=== PATIENT | female | born 1985 ===

== ENCOUNTER 2016-11-25 11:17 | Day surgery (SDC) | payer MEDICAID ==
[2016-11-25] MEDS ORDERED: LR 1,000 ML IV ONE (12:05)
[2016-11-25] MEDS ORDERED: SURGIFLO MATRIX KIT WITH THROMBIN TP ONE (12:09)
[2016-11-25] MEDS ORDERED: METHYLENE BLUE 0.5% 50 MG/10 ML AMP ONE (12:10)
[2016-11-25] MEDS ORDERED: SILVER NITRATE APPLICATOR 1 APPL TP ONE (12:10)
[2016-11-25] MEDS ORDERED: BUPIVACAINE 0.25% 30 ML SDV ONE (12:10)
[2016-11-25] MEDS ORDERED: fentaNYL 100 MCG/2 ML INJ ONE ×2 (12:28→13:55)
[2016-11-25] MEDS ORDERED: MIDAZOLAM 2 MG/2 ML VIAL ONE (12:29)
[2016-11-25] MEDS ORDERED: PROPOFOL 200 MG/20 ML VIAL ONE (12:29)
[2016-11-25] MEDS ORDERED: ROCURONIUM 50 MG/5 ML VIAL ONE (12:29)
[2016-11-25] MEDS ORDERED: PROPOFOL/EMULSION 500 MG/50 ML BOTTLE IV ONE (12:44)
[2016-11-25] MEDS ORDERED: SUGAMMADEX SODIUM 200 MG/2 ML VIAL IVP ONE (13:01)
[2016-11-25] MEDS ORDERED: KETOROLAC 30 MG/1 ML SDV ONE (13:24)
--- NOTE | 2016-11-25 14:11 | GOP ---
[f rep st] OPERATIVE REPORT DATE OF OPERATION: 11/25/2016 SURGEON: Lizbeth Ramos MD HEALTH ADVISOR: Gardenia Nathan MD ANESTHESIOLOGIST: Jose G Simons MD ANESTHESIA: General with ET tube. PREOPERATIVE DIAGNOSIS: Desires female sterilization. POSTOPERATIVE DIAGNOSIS: Desires female sterilization. PROCEDURE PERFORMED: Laparoscopic bilateral salpingectomy. FINDINGS: Normal intraabdominal cavity, no adhesions. Normal bilateral tubes and ovaries. Normal uterus. Both fallopian tubes completely removed. Hemostasis noted at the end of procedure. SPECIMENS: Bilateral fallopian tubes. ESTIMATED BLOOD LOSS: Minimal. INDICATIONS: Patient is a 31-year-old, 3, para 3-0-0-3, who desires female sterilization. She is certain she does not want more children. She has tried other control options and feels they are not acceptable to her. We reviewed the risks and benefits, including the risk of regret, and she desires to proceed with permanent female sterilization with bilateral salpingectomy. DESCRIPTION OF PROCEDURE: The patient was brought to the operating room and a time-out was performed, with all parties in agreement of the patient and procedure. General anesthesia, with the ET tube, was obtained without complication. She was prepped and draped in the normal sterile fashion in dorsal lithotomy with Pedro stirrups and arms tucked, and a Caro catheter. Final time-out was performed. An acorn uterine manipulator was placed. 5 mL of 0.25% Marcaine was injected into the umbilicus. A 5 mm incision was made. The skin was tented up and the Veress needle was inserted. An opening pressure of 2 mmHg was noted, and the abdomen was insufflated to 15 mmHg. The 5 mm umbilical port was then placed under direct visualization. After injection of 5 mL of 0.25% Marcaine, bilateral 5 mm lower abdominal ports were also placed under direct visualization. The patient was placed in Trendelenburg. The findings were as noted above. The left tube was grasped at the fimbria, and using the PK gyrus underlying mesosalpinx was serially clamped, sealed and cut to the level of the cornua, where the tube was then cross-clamped and sealed and transected. The tube was removed intact. The same procedure was performed on the right. Hemostasis was noted. All instruments were removed. Gas was removed from the abdomen. The incisions were closed with 4-0 Monocryl and covered with Dermabond. All instruments removed from the vagina. Hemostasis was noted. Counts were correct x2. The patient was awakened in good condition and brought to the recovery room. COMPLICATIONS: None. FLUIDS: 700 mL crystalloid. URINE OUTPUT: 30 mL via Caro. OUTCOME: Stable to PACU. /[id number]/MODL MTDD
[2016-11-25] MEDS ORDERED: HYDROCODONE/APAP 5/325 TAB ONE (15:12)
== END 2016-11-25 16:18 | disposition home or self-care (01) ==
LOC: FSGY 11:17
PROVIDERS: ATTEND Obstetrics & Gynecology
PROC: 0UB74ZZ Excision of Bilateral Fallopian Tubes, Percutaneous Endoscopic Approach (ICD-10-PCS; principal; 2016-11-25 12:30)
DX: Z30.2 Encounter for sterilization (principal)
CPT/HCPCS: J1885; J2250; J2704; J3010; Q9968